=== PATIENT | female | born 1990 | race Caucasian/White ===

== ENCOUNTER 2024-04-23 14:45 | Outpatient (OUT) | payer OTHER, SELFPAY ==
--- NOTE | 2024-04-23 15:04 | US_ITS ---
The [address] [address] Patient Name: CORI DEL VALLE MRN: [id number] date: 1990 Sex: F Assigned Patient Location: Current Patient Location: Accession/Order Number: [id number] Exam Date: 04/23/2024 15:05 Report Date: 04/24/2024 09:31 At the request of: PEBBLES DELUNA Procedure: US pelvis w/ transvaginal EXAMINATION: US pelvis w/ transvaginal HISTORY: Menorrhagia with regular cycle COMPARISON: No relevant comparison available. TECHNIQUE: Transabdominal and/or transvaginal sonographic examination was performed as indicated by examination type. FINDINGS: UTERUS: Normal size and appearance. Uterus size: 7.5 x 4.8 x 3.4 cm ENDOMETRIUM: Normal homogeneous appearance. Endometrial thickness: 3 mm RIGHT OVARY: Normal size and appearance. Duplex Doppler demonstrates normal waveform and flow; resistive index 0.6. Ovary size: 4.0 x 2.5 x 2.6 cm LEFT OVARY: Contains approximately 6 small peripherally located follicles ranging between 4 mm and 7 mm. Duplex Doppler demonstrates normal waveform and flow; resistive index 0.5. Ovary size: 4.1 x 2.3 x 2.5 cm CUL-DE-SAC: Unremarkable. No significant free fluid. BLADDER: Unremarkable. OTHER: None. US/US pelvis w/ transvaginal IMPRESSION: 1. Unremarkable uterus and endometrium. 2. Numerous small peripherally located follicles within left ovary which can be seen with polycystic ovarian syndrome, however, the right ovary is normal so this may just be incidental related to timing. Electronically authenticated by: JATIN CABRAL Date: 04/24/2024 09:31
[2024-04-23 15:44] LABS: Basophils Percent Auto 0.7 % (0.2-2.0); Eosinophils Absolute Auto 0.1 10^3/uL (0.0-0.7); Eosinophils Percent Auto 3.2 % (0.9-7.0); Hematocrit 39.3 % (36.0-48.0); Hemoglobin 13.1 g/dL (12.0-16.0); Lymphocytes Absolute Auto 2.4 10^3/uL (1.2-3.8); Lymphocytes Percent Auto 53.8 % (20.5-60.0); Mean Corpuscular HGB Conc 33.3 g/dL (29.9-35.2); Mean Corpuscular Hemoglobin 31.3 pg (26.7-34.0); Mean Corpuscular Volume 93.8 fL (81.0-99.0); Mean Platelet Volume 10.3 fL (9.5-13.5); Monocytes Absolute Auto 0.3 10^3/uL (0.3-0.8); Monocytes Percent Auto 6.2 % (1.7-12.0); Neutrophils Absolute Auto 1.6 10^3/uL (1.4-6.5); Neutrophils Percent Auto 36.1 % (43.0-75.0); Platelet Count 220 10^3/uL (150-450); Red Blood Count 4.19 10^6/uL (4.20-5.40); Red Cell Distribution Width 12.3 % (11.0-15.0); White Blood Count 4.4 10^3/uL (4.0-11.0)
[2024-04-23 16:00] LABS: INR 1.11; Partial Thromboplastin Time 29.4 sec (22.3-36.2); Prothrombin Time 11.6 sec (9.0-11.6)
[2024-04-23 16:07] LABS: Estimated Average Glucose 97 mg/dL
[2024-04-23 16:16] LABS: HCG Quantitative <1 mIU/mL; Thyroid Stimulating Hormone 0.803 uIU/mL (0.358-3.740)
== END 2024-04-23 14:46 | disposition home or self-care (01) ==
LOC: US 14:48
PROVIDERS: PCP Family Medicine; Visit Provider Obstetrics & Gynecology
DX: N92.0 Excessive and frequent menstruation with regular cycle (principal)
CPT/HCPCS: 36415; 76830; 76856; 83036; 84439; 84443; 84702; 85025; 85610; 85730

== ENCOUNTER 2024-07-09 19:55 | Outpatient (REF) | payer OTHER, SELFPAY | END 2024-07-09 19:56 | disposition home or self-care (01) | LOC: LAB 19:55 | PROVIDERS: PCP Family Medicine; Visit Provider Obstetrics & Gynecology | DX: Z01.419 Encounter for gynecological examination (general) (routine) without abnormal findings (principal) | CPT/HCPCS: 87624; 88175 ==